=== PATIENT | male | born 1945 | race Hispanic/Latino ===

== ENCOUNTER 2017-04-11 06:10 | Inpatient (IN) | payer MEDICARE, OTHER ==
[2017-01-31 07:02] VITALS: BMI 29.5
[2017-04-11] MEDS ORDERED: Propofol 10 mg/ml Inj (20 ML) ONE (07:49)
[2017-04-11] MEDS ORDERED: Midazolam 2 MG/2 ML VIAL ONE (07:49)
[2017-04-11] MEDS ORDERED: Rocuronium 10 mg/ml (5 ml) ONE (07:49)
[2017-04-11] MEDS ORDERED: Succinylcholine 200 mg/10 ml Inj IV ONE (07:50)
[2017-04-11] MEDS ORDERED: Lidocaine 4% (Laryng-O-Jet) Kit MM ONE (07:50)
--- NOTE | 2017-04-11 07:53 | CP.PCM.CON ---
History of Present Illness - History of Present Illness History of Present Illness: 71 yo right hand dominant male here for TWIST TESTER Shunt Revision,placement was 4 years ago in [facility] for Symptomatic NPH post dx LP,worsening ataxic gait, ambulates with asst device,temporary improvement in symptoms post,denies urinary incontinance,memory or vision disturbance,SCHAFER,N/V,abdominal pain or revision in the past,outpt imaging showing shunt in appropriate position with dilated lateral ventricles c/w NPH,here today for proposed revision with Dr. Robison. Past Patient History - Past Medical History & Family History Past Medical History?: Yes - Past Social History Smoking Status: Smoker Currrent Status Unknown - CARDIAC Hx Cardiac Disorders: Yes Hx Hypercholesterolemia: Yes Hx Hypertension: Yes Hx Pacemaker: No - PULMONARY Hx Respiratory Disorders: No - NEUROLOGICAL Hx Neurological Disorder: No Hx Paralysis: No - HEENT Hx HEENT Problems: No - RENAL Hx Chronic Kidney Disease: No - ENDOCRINE/METABOLIC Hx Endocrine Disorders: No - HEMATOLOGICAL/ONCOLOGICAL Hx Blood Disorders: No Hx Blood Transfusions: No Hx Cancer: Yes (bladder) - INTEGUMENTARY Hx Dermatological Problems: No - MUSCULOSKELETAL/RHEUMATOLOGICAL Hx Musculoskeletal Disorders: Yes Hx Falls: No Hx Unsteady Gait: Yes - GASTROINTESTINAL Hx Gastrointestinal Disorders: No - GENITOURINARY/GYNECOLOGICAL Hx Genitourinary Disorders: No Hx Hematuria: Yes - PSYCHIATRIC Hx Emotional Abuse: No Hx Physical Abuse: No - SURGICAL HISTORY Hx Surgeries: Yes Hx Cardiac Catheterization: Yes Other/Comment: VENTRICULAR PERINEA RIGHT SIDE 6 YRS AGO - ANESTHESIA Hx Anesthesia: Yes Hx Anesthesia Reactions: No (VOMITING) Hx Malignant Hyperthermia: No Has any member of the family had a problem w/ anesthesia?: No Meds Allergies/Adverse Reactions: Allergies Allergy/AdvReac Type Severity Reaction Status Date / Time No Known Allergies Allergy Verified 01/04/12 08:02 Physical Exam - Constitutional Appears: Well, Non-toxic, No Acute Distress - Head Exam Head Exam: ATRAUMATIC, NORMAL INSPECTION, NORMOCEPHALIC - Eye Exam Eye Exam: EOMI, Normal appearance, PERRL Pupil Exam: NORMAL ACCOMODATION Additional comments: visual ly full,finger to nose discrimination intact - ENT Exam ENT Exam: Mucous Membranes Moist - Neck Exam Neck exam: Positive for: Normal Inspection - Respiratory Exam Respiratory Exam: Clear to Auscultation Bilateral - Cardiovascular Exam Cardiovascular Exam: REGULAR RHYTHM - GI/Abdominal Exam GI & Abdominal Exam: Normal Bowel Sounds - Back Exam Back exam: NORMAL INSPECTION - Neurological Exam Neurological exam: Alert, Oriented x3 Additional comments: pupils equal and brisk,EOMI,speech clear and fluent,VFF,smile symmetric,healed Right Frontal surgical scar's ,shunt reservoir pumps and fills,GALLEGOS x4 antigravity with 5/5 ms,sensation intact,gait ataxic. Results - Vital Signs Recent Vital Signs: Last Vital Signs Temp 98.3 F 04/11/17 07:05 Pulse 69 04/11/17 07:11 Resp 18 04/11/17 07:05 BP 137/80 04/11/17 07:05 Pulse Ox 97 04/11/17 07:05 Assessment & Plan - Assessment and Plan (Free Text) Assessment: 71 yo male with VPS for NPH p/w malfunction,Neuro intact with ataxic gait. Plan: here today for VPS revision,risks and benefits d/w pt and family,expressed understanding and wishes to proceed.
[2017-04-11] MEDS ORDERED: Bupivacaine HCl 0.25% PF (30 ml) Inj ONE (08:08)
[2017-04-11] MEDS ORDERED: Thrombin Topical 5,000 IU Spray Kit ONE (08:09)
[2017-04-11] MEDS ORDERED: Bacitracin Ointment 30 GM TUBE ONE (08:09)
[2017-04-11] MEDS ORDERED: Absorbable Gelatin Sponge Size 12-7 ONE (08:09)
[2017-04-11] MEDS ORDERED: APROTININ/FIBRINOGEN(TISSEEL) ONE (08:09)
[2017-04-11] MEDS ORDERED: Lidocaine 2% w Epi 1:100,000 Inj IJ ONE (08:10)
[2017-04-11] MEDS ORDERED: Lactated Ringer's 1,000 ML IV ONE (08:55)
[2017-04-11] MEDS ORDERED: Dexamethasone 4 mg/1 ml ONE (09:24)
[2017-04-11] MEDS ORDERED: Neostigmine Methylsulfate 2 MG/2 ML ML IV ONE (09:43)
[2017-04-11] MEDS ORDERED: Neostigmine Methylsulfate 3mg/3ml Syringe IV ONE (09:43)
[2017-04-11] MEDS ORDERED: Oxycodone/Acetaminophen 5/325 mg Tab PO PRN (11:24)
[2017-04-11] MEDS: Sodium Chloride 0.9% 1,000 ML IV SCH (12:10)
--- NOTE | 2017-04-11 13:49 | CP.PCM.HP ---
History of Present Illness - History of Present Illness History of Present Illness: 71 y/o male with a PMHx remarkable for HTN, HLD and NPH presented for SPIKE DRIVER Shunt revision. Pt originally had SPIKE DRIVER shunt placed 4 years ago for symptomatic NPH and has been having worsening ataxic gait. Denies any problems with urinary retention/incontinence, numbness/tingling, changes in behavior. Pt under went SPIKE DRIVER Shunt revision today with Dr. Robison and tolerated the procedure well. Pt was examined at bedside once he arrived to med/surg and reports he is feeling fine with just some soreness. Tolerated PO intake w/o difficulty. No other complaints. ROS: 12 pts reviewed, as per HPI PMD: Dr. Gary Ferrara PMHx: as listed above Meds: as per med rec ALL: NKDA PSurgHx: bladder tumor excision ', SPIKE DRIVER shunt secondary to symptomatic NPH 4 years ago in [place] SocialHx: lives in [place] with , denies ETOH, Tobacco, Drug abuse PE: GEN: alert, pleasant mood, NAD PSYCH: AAOx3, cooperative with exam, good eye contact, mood/affect full range HEENT: Neck: FROM, supple, no masses, no carotid bruit CVS: RRR, S1S2+, No MRG LUNGS: CTAB, No WRR ABD: +BS, soft, nontender, nondistended EXT: scqs attached, distal pulses 2+ b/l, sensation intact Neuro: CN II-XII grossly intact Assessment: 71 y/o male with PMHx of HTN, HLD, and NPH s/p shunt revision for symptomatic NPH/shunt malfunction POD#0. Plan: 1) s/p SPIKE DRIVER Shunt Revision POD#0 -PT eval and treatment -pain control via percoet/morphine PRN -incentive spirometry -advance diet -monitor vitals 2) Hypertension: Losartan 50mg QD Metoprolol 50mg QD 3) Hyperlipidemia 4) Prophylaxis: aspirin 325mg QD scds zofran 4mg IVP PRN nausea Present on Admission - Present on Admission Any Indicators Present on Admission: No Past Patient History - Past Medical History & Family History Past Medical History?: Yes - Past Social History Smoking Status: Smoker Currrent Status Unknown - CARDIAC Hx Cardiac Disorders: Yes Hx Hypercholesterolemia: Yes Hx Hypertension: Yes Hx Pacemaker: No - PULMONARY Hx Respiratory Disorders: No - NEUROLOGICAL Hx Neurological Disorder: No Hx Paralysis: No - HEENT Hx HEENT Problems: No - RENAL Hx Chronic Kidney Disease: No - ENDOCRINE/METABOLIC Hx Endocrine Disorders: No - HEMATOLOGICAL/ONCOLOGICAL Hx Blood Disorders: No Hx Blood Transfusions: No Hx Cancer: Yes (bladder) - INTEGUMENTARY Hx Dermatological Problems: No - MUSCULOSKELETAL/RHEUMATOLOGICAL Hx Musculoskeletal Disorders: Yes Hx Falls: No Hx Unsteady Gait: Yes - GASTROINTESTINAL Hx Gastrointestinal Disorders: No - GENITOURINARY/GYNECOLOGICAL Hx Genitourinary Disorders: No Hx Hematuria: Yes - PSYCHIATRIC Hx Emotional Abuse: No Hx Physical Abuse: No - SURGICAL HISTORY Hx Surgeries: Yes Hx Cardiac Catheterization: Yes Other/Comment: VENTRICULAR PERINEA RIGHT SIDE 6 YRS AGO - ANESTHESIA Hx Anesthesia: Yes Hx Anesthesia Reactions: No (VOMITING) Hx Malignant Hyperthermia: No Has any member of the family had a problem w/ anesthesia?: No Meds Allergies/Adverse Reactions: Allergies Allergy/AdvReac Type Severity Reaction Status Date / Time No Known Allergies Allergy Verified 01/04/12 08:02 Results - Vital Signs Recent Vital Signs: Last Vital Signs Temp 97.9 F 04/11/17 13:42 Pulse 76 04/11/17 13:42 Resp 17 04/11/17 13:42 BP 131/71 04/11/17 13:42 Pulse Ox 94 L 04/11/17 13:42
[2017-04-11] MEDS ORDERED: ceFAZolin 1 GM in Sodium Chloride 0.9% 100 ML IVPB SCH (17:00)
[2017-04-12] MEDS: Sodium Chloride 0.9% 1,000 ML IV SCH ×2 (01:31→04:07)
--- NOTE | 2017-04-12 02:49 | OP ---
PROCEDURE DATE: 04/11/2017 PREOPERATIVE DIAGNOSIS: Right ventriculoperitoneal shunt malfunction. POSTOPERATIVE DIAGNOSIS: Right ventriculoperitoneal shunt malfunction. PROCEDURE: Revision of distal end of the right sided ventriculoperitoneal shunt. SURGEON: Dr. Erich Robison. SALES ADMINISTRATOR: Dylan Naylor MD. The part of the surgery will be dictated by him as a separate part. DESCRIPTION OF PROCEDURE: The patient was brought to the operating room administered with general endotracheal anesthesia, placed in supine position. Head was placed in a doughnut. Right frontal area, neck, chest and abdomen thoroughly prepped and draped in the same sterile manner. At this point, after prepping and draping the area, the subcostal skin incision has been open by Dr. Naylor which will be dictated by separate part and at this point, the catheter was pulled out and there was some fat that was stuck along with the proteinaceous material by something this from the superior end and also cutting part of the catheter. The clear flow of fluid was found to becoming. Before that there was no flow noted and at this point, it was placed back in the peritoneal cavity and Dr. Naylor is going to dictate the separate part the opening and the closure. The patient tolerated the procedure. After procedure, mobilized to the recovery room in stabilized condition. Erich Robison MD Dylan Naylor MD
[2017-04-12 08:09] VITALS: BP 144/65; RESP 18; TEMP 97.6
[2017-04-12] MEDS ORDERED: Metoprolol Succinate 50 mg XL Tab PO SCH (09:00)
[2017-04-12 10:55] LABS: BASO # 0.1 K/uL (0.0-0.2); BASO % 0.5 % (0.0-2.0); EOS # 0.1 K/uL (0.0-0.7); EOS % 1.2 % (0.0-4.0); HEMATOCRIT 43.3 % (35.0-51.0); LYMPH # 1.7 K/uL (1.0-4.3); LYMPH % 13.1 % (20.0-40.0); MEAN CELL VOLUME 92.7 fl (80.0-94.0); MEAN CORPUSCULAR HEMOGLOBIN 31.2 pg (27.0-31.0); MEAN CORPUSCULAR HGB CONC 33.7 g/dL (33.0-37.0); MEAN PLATELET VOLUME 6.3 fl (7.2-11.7); MONO # 0.8 K/uL (0.0-0.8); MONO % 6.5 % (0.0-10.0); NEUT % 78.7 % (50.0-75.0); NRBC % 0.1 % (0.0-0.0); RED CELL DISTRIBUTION WIDTH 13.6 % (11.5-14.5); WHITE BLOOD COUNT 12.8 K/uL (4.8-10.8)
[2017-04-12 11:04] LABS: BLOOD UREA NITROGEN 13 mg/dl (9-20); CALCIUM 9.4 mg/dL (8.4-10.2); CARBON DIOXIDE 26 mmol/L (22-30); CHLORIDE 105 mmol/L (98-107); GFR AFRICAN-AMERICAN > 60; GLUCOSE,RANDOM 137 mg/dL (75-110); POTASSIUM 3.9 MMOL/L (3.6-5.0); SODIUM 141 mmol/l (132-148)
[2017-04-12 11:57] VITALS: PULSE 61; O2SAT 96
--- NOTE | 2017-04-12 13:41 | CP.PCM.DIS ---
Provider - Provider Date of Admission: 04/11/17 11:01 Attending physician: Porter Tate MD Primary care physician: Gary Ferrara DO [facility] Course - Lab Results Lab Results: Most Recent Lab Values WBC 12.8 K/uL (4.8-10.8) H D 04/12/17 10:40 RBC 4.67 Mil/uL (4.40-5.90) 04/12/17 10:40 Hgb 14.6 g/dL (12.0-18.0) 04/12/17 10:40 Hct 43.3 % (35.0-51.0) 04/12/17 10:40 MCV 92.7 fl (80.0-94.0) 04/12/17 10:40 MCH 31.2 pg (27.0-31.0) H 04/12/17 10:40 MCHC 33.7 g/dL (33.0-37.0) 04/12/17 10:40 RDW 13.6 % (11.5-14.5) 04/12/17 10:40 Plt Count 268 K/uL (130-400) 04/12/17 10:40 MPV 6.3 fl (7.2-11.7) L 04/12/17 10:40 Neut % (Auto) 78.7 % (50.0-75.0) H 04/12/17 10:40 Lymph % (Auto) 13.1 % (20.0-40.0) L 04/12/17 10:40 [place] % (Auto) 6.5 % (0.0-10.0) 04/12/17 10:40 Eos % (Auto) 1.2 % (0.0-4.0) 04/12/17 10:40 Baso % (Auto) 0.5 % (0.0-2.0) 04/12/17 10:40 Neut # 10.0 K/uL (1.8-7.0) H 04/12/17 10:40 Lymph # 1.7 K/uL (1.0-4.3) 04/12/17 10:40 [place] # 0.8 K/uL (0.0-0.8) 04/12/17 10:40 Eos # 0.1 K/uL (0.0-0.7) 04/12/17 10:40 Baso # 0.1 K/uL (0.0-0.2) 04/12/17 10:40 Sodium 141 mmol/l (132-148) 04/12/17 10:40 Potassium 3.9 MMOL/L (3.6-5.0) 04/12/17 10:40 Chloride 105 mmol/L (98-107) 04/12/17 10:40 Carbon Dioxide 26 mmol/L (22-30) 04/12/17 10:40 Anion Gap 14 (10-20) 04/12/17 10:40 BUN 13 mg/dl (9-20) 04/12/17 10:40 Creatinine 0.8 mg/dL (0.8-1.5) 04/12/17 10:40 Est GFR ( Amer) > 60 04/12/17 10:40 Est GFR (Non-Af Amer) > 60 04/12/17 10:40 Random Glucose 137 mg/dL (75-110) H 04/12/17 10:40 Calcium 9.4 mg/dL (8.4-10.2) 04/12/17 10:40 Discharge Exam - Head Exam Head Exam: ATRAUMATIC, NORMAL INSPECTION, NORMOCEPHALIC Discharge Plan - Follow Up Plan Condition: GOOD Disposition: HOME/ ROUTINE Instructions: Ventriculoperitoneal Shunt Placement (DC) Additional Instructions: [facility] [phone] guerrero 1-2weeks Referrals: Erich Guerrero MD [Staff Provider] - Gary Ferrara DO [Primary Care Provider] -
== END 2017-04-12 12:50 | disposition home or self-care (01) | DRG 33 ==
LOC: H.OPSURG 06:10 → H.MEDSURG1 11:01
PROVIDERS: ADMIT Family Medicine; ATTEND Family Medicine
PROC: 00160J6 Bypass Cerebral Ventricle to Peritoneal Cavity with Synthetic Substitute, Open Approach (ICD-10-PCS; principal; 2017-04-11 09:45)
DX: T85.01XA Breakdown (mechanical) of ventricular intracranial (communicating) shunt, initial encounter (principal); I10 Essential (primary) hypertension; E78.5 Hyperlipidemia, unspecified; E78.00 Pure hypercholesterolemia, unspecified; Y75.2 Prosthetic and other implants, materials and neurological devices associated with adverse incidents; R26.81 Unsteadiness on feet; R27.0 Ataxia, unspecified